=== PATIENT | female | born 1970 | race Caucasian/White ===

== ENCOUNTER 2016-12-29 08:22 | Day surgery (SDC) | payer BC ==
[~2016-12-29 08:22] MED LIST: PRILOSEC40 MG PO; RANITIDINE300 MG PO; TOPAMAX50 MG PO; ZYRTEC ALLGY10 MG PO; [UNRECOGNIZED DRUG - OTHER] IM
== END 2016-12-29 23:59 | disposition home or self-care (01) ==
LOC: DMU 08:22
PROVIDERS: Internal Medicine Gastroenterology
PROC: 4A1B88Z Monitoring of Gastrointestinal Motility, Via Natural or Artificial Opening Endoscopic (ICD-10-PCS; principal; 2016-12-29 09:00)
DX: K21.9 Gastro-esophageal reflux disease without esophagitis (principal); Z88.5 Allergy status to narcotic agent; Z88.1 Allergy status to other antibiotic agents
CPT/HCPCS: A9270-GY